=== PATIENT | male | born 1985 | race Caucasian/White ===

== ENCOUNTER → 2016-06-10 | Outpatient (CLI) | payer SELFPAY ==
[~2016-06-10] MED LIST: ETOMIDATE 20 MG/10 ML VIAL IV PUSH ONE; LIDOCAINE HCL 2% 100 MG/5 ML SYRINGE IV PUSH ONE; LORAZEPAM IVP ONE
== END ==
LOC: HEDF 22:03
DX: S01.81XA Laceration without foreign body of other part of head, initial encounter (principal); S72.92XB Unspecified fracture of left femur, initial encounter for open fracture type I or II; V29.9XXA Motorcycle rider (driver) (passenger) injured in unspecified traffic accident, initial encounter
CPT/HCPCS: A0431; A0436; J2060